=== PATIENT | male | born 1975 | race Caucasian/White ===

== ENCOUNTER 2020-10-15 06:51 | Outpatient (CLI) | payer BC, SELFPAY ==
--- NOTE | 2020-10-15 09:00 | XRR_ITS ---
PROCEDURE INFORMATION: Exam: XR Abdomen Exam date and time: 10/15/2020 7:01 AM Age: 45 years old Clinical indication: Condition or disease; Kidney or ureter condition; Other: Urolithiasis TECHNIQUE: Imaging protocol: XR of the abdomen. Views: Frontal supine view of the abdomen. 1 View. COMPARISON: CR XR KUB [id number] 11/09/2017 7:25 AM FINDINGS: Gastrointestinal tract: Prominent stool. Intraperitoneal space: Incomplete visualization of the superior and left lateral aspects of the abdomen. Organs: Obscuration of the right renal fossa by bowel gas and stool. 4 and 13 mm calcifications overlying the left renal fossa suggesting urolithiasis. Bones/joints: Unremarkable. XR/XR KUB [id number] IMPRESSION: 4 and 13 mm calcifications overlying the left renal fossa suggesting urolithiasis.
== END 2020-10-15 06:52 | disposition home or self-care (01) ==
LOC: RAD 06:54
PROVIDERS: Visit Provider Urology
DX: N20.0 Calculus of kidney (principal)
CPT/HCPCS: 74018; 81003; G0103

== ENCOUNTER 2021-12-03 12:00 | Outpatient (CLI) | payer BC, SELFPAY | END 2021-12-03 12:01 | disposition home or self-care (01) | LOC: SLEEP 12-04 09:05 | PROVIDERS: PCP Family Medicine; Visit Provider Nurse Practitioner Family | DX: G47.33 Obstructive sleep apnea (adult) (pediatric) (principal) | CPT/HCPCS: G0399 ==

== ENCOUNTER 2022-02-09 20:00 | Outpatient (CLI) | payer BC, SELFPAY | END 2022-02-09 20:01 | disposition home or self-care (01) | LOC: SLEEP 02-10 06:43 | PROVIDERS: PCP Family Medicine; Visit Provider Nurse Practitioner Family | DX: G47.31 Primary central sleep apnea (principal) | CPT/HCPCS: 95811 ==

== ENCOUNTER 2024-10-23 14:55 | Outpatient (CLI) | payer BC, SELFPAY ==
--- NOTE | 2024-10-23 15:04 | XRR_ITS ---
PROCEDURE INFORMATION: Exam: XR Thoracic Spine Exam date and time: 10/23/2024 10:59 AM Age: 49 years old Clinical indication: Pain in thoracic spine; Additional info: Thoracic back pain TECHNIQUE: Imaging protocol: Radiologic exam of the thoracic spine. Views: 3 views. COMPARISON: CR XR KUB [id number] 10/15/2020 7:11 AM FINDINGS: Bones/joints: Subtle age indeterminate compression deformity of the T9 vertebral body. Consider follow up with cross-sectional imaging to confirm. Remaining vertebral body heights are preserved. Preserved alignment. Soft tissues: Unremarkable. XR/XR thoracic spine 2V [id number] IMPRESSION: As above.
== END 2024-10-23 14:56 | disposition home or self-care (01) ==
LOC: RADOUTREAD 14:57
PROVIDERS: PCP Nurse Practitioner Family; Visit Provider Nurse Practitioner Family
DX: M54.6 Pain in thoracic spine (principal); M48.54XA Collapsed vertebra, not elsewhere classified, thoracic region, initial encounter for fracture
CPT/HCPCS: 72070

== ENCOUNTER 2024-11-13 13:45 | Outpatient (CLI) | payer BC, SELFPAY ==
--- NOTE | 2024-11-13 13:55 | MR_ITS ---
WS: [id number] MRI THORACIC SPINE WITHOUT CONTRAST TECHNIQUE: Sagittal T1, T2 and STIR imaging. Axial T2 imaging. Noncontrast imaging obtained. CLINICAL INFORMATION: THORACIC BACK PAIN COMPARISON: None. FINDINGS: Mild thoracic curve. Mild thoracic kyphosis. Tiny shallow central protrusions in the mid thoracic spine most prominent at T8. Slight contact of the RIGHT ventral thoracic cord. No significant central canal stenosis. Moderate facet arthropathy lower thoracic spine. Tiny central protrusion at T5-T6 with slight contact of the thoracic cord. Mild to moderate bony foraminal narrowing bilateral T10-11, bilateral T11-12. Small esophageal hiatal hernia. Adrenal glands are normal. MR/MR thoracic spin wo con* [id number] IMPRESSION: 1. No acute compression fractures. 2. Additional degenerative and spondylitic changes described above
== END 2024-11-13 13:46 | disposition home or self-care (01) ==
LOC: RAD 13:46
PROVIDERS: PCP Nurse Practitioner Family; Visit Provider Nurse Practitioner Family
DX: M47.894 Other spondylosis, thoracic region (principal); M43.8X4 Other specified deforming dorsopathies, thoracic region; M48.04 Spinal stenosis, thoracic region; K44.9 Diaphragmatic hernia without obstruction or gangrene
CPT/HCPCS: 72146